=== PATIENT | male | born 1990 | race African-American/Black ===

== ENCOUNTER → 2017-08-19 | Outpatient (CLI) | payer OTHER | LOC: M SLEEP 20:09 | DX: G47.30 Sleep apnea, unspecified (principal); R06.83 Snoring; G47.61 Periodic limb movement disorder | CPT/HCPCS: 95810 ==

== ENCOUNTER 2017-11-22 05:49 | Day surgery (SDC) | payer OTHER ==
[2017-11-22] MEDS ORDERED: LR 1,000 ML IV ×2 (06:00→09:45)
[2017-11-22] MEDS ORDERED: ROCURONIUM BROMIDE 50 MG/5 ML VIAL As Ordered (07:07)
[2017-11-22] MEDS ORDERED: fentaNYL 250 MCG/5 ML INJECTION (J3010) As Ordered (07:07)
[2017-11-22] MEDS ORDERED: PROPOFOL 200 MG/20 ML VIAL As Ordered (07:07)
[2017-11-22] MEDS ORDERED: LIDOCAINE 2% INJ 100 MG/5 ML SDV (FOR ANES.) As Ordered (07:07)
[2017-11-22] MEDS ORDERED: MIDAZOLAM INJ 2 MG/2 ML VIAL (J2250) As Ordered (07:08)
[2017-11-22] MEDS ORDERED: dexameTHASONE 4 MG/ML 1ML VIAL (J1100) As Ordered ×2 (07:45)
[2017-11-22] MEDS ORDERED: KETOROLAC 60 MG/2 ML VIAL (J1885) As Ordered (07:45)
[2017-11-22] MEDS ORDERED: ONDANSETRON 4MG/2ML VIAL (J2405) As Ordered (07:45)
[2017-11-22] MEDS: METHYLENE BLUE 0.5% (5MG/ML) 10 ML AMP (PROVAYBLUE)(Q9968 PER 1MG) As Ordered (07:50)
[2017-11-22] MEDS: OXYMETAZOLINE NASAL SPRAY (AFRIN) As Ordered (07:50)
[2017-11-22] MEDS: LIDOCAINE W/EPINEPHRINE 1% 20ML VIAL As Ordered (07:52)
[2017-11-22] MEDS ORDERED: HYDROmorphone HCL 2 MG/ML 1ML VIAL (J1170) As Ordered (07:57)
[2017-11-22] MEDS ORDERED: NEOSTIGMINE 10 MG/10 ML VIAL (J2710) As Ordered (08:03)
[2017-11-22] MEDS ORDERED: GLYCOPYRROLATE INJ 0.2 MG/ML 2 ML VIAL As Ordered (08:03)
[2017-11-22] MEDS ORDERED: PERCOCET 5MG/325MG TAB As Ordered (09:18)
[2017-11-22] MEDS: PERCOCET 5MG/325MG TAB PO ×2 (09:24→10:37)
[2017-11-22] MEDS ORDERED: IBUPROFEN 800 MG TAB PO (09:45)
[2017-11-22] MEDS ORDERED: PERCOCET 5MG/325MG TAB PO (09:45)
[2017-11-22] MEDS ORDERED: fentaNYL 100 MCG/2 ML INJECTION (J3010) IV (09:45)
[2017-11-22] MEDS: ONDANSETRON 4MG/2ML VIAL (J2405) IV (09:49)
[2017-11-22] MEDS: MORPHINE 4 MG/ML 1ML VIAL (J2270) IV (11:55)
[2017-11-22] MEDS ORDERED: METOCLOPRAMIDE INJ 10MG/2ML VIAL (J2765) As Ordered (12:15)
[2017-11-22] MEDS: METOCLOPRAMIDE INJ 10MG/2ML VIAL (J2765) IV (12:25)
[2017-11-22] MEDS ORDERED: MORPHINE 4 MG/ML 1ML VIAL (J2270) IV (12:45)
== END 2017-11-22 12:33 | disposition home or self-care (01) ==
LOC: M SDC 05:49
DX: J34.2 Deviated nasal septum (principal); J31.0 Chronic rhinitis; F41.9 Anxiety disorder, unspecified; F32.9 Major depressive disorder, single episode, unspecified
CPT/HCPCS: 30520

== ENCOUNTER 2018-01-05 09:34 | Outpatient (RCR) | payer OTHER | END 2018-01-27 | LOC: M OT 09:34 | DX: Z51.89 Encounter for other specified aftercare (principal); M79.641 Pain in right hand; Z98.890 Other specified postprocedural states | CPT/HCPCS: 97110 ==

== ENCOUNTER 2018-02-04 11:15 | Outpatient (RCR) | payer OTHER | END 2018-02-26 | LOC: M OT 11:15 | DX: Z51.89 Encounter for other specified aftercare (principal); M79.641 Pain in right hand | CPT/HCPCS: 97110 ==